=== PATIENT | female | born 1970 | race Caucasian/White ===

== ENCOUNTER → 2022-11-25 | Outpatient (CLI) | payer OTHER ==
[2022-11-25 15:18] LABS: Basophils # (A) 0.06 X 10*3/uL (0.00-0.10); Basophils % (A) 0.6 %; Eosinophils # (A) 0.42 X 10*3/uL (0.04-0.35); Eosinophils % (A) 3.9 %; HCT 37.7 % (37.2-46.3); HGB 12.4 g/dL (12.0-15.0); Immature Grans, Automated 0.4 %; Lymphocytes # (A) 3.39 X 10*3/uL (0.90-5.00); Lymphocytes % (A) 31.4 %; MCH 31.7 pg (27.0-32.0); MCHC 32.9 g/dL (32.0-37.0); MCV 96.4 fL (80.0-97.0); Monocytes # (A) 0.45 X 10*3/uL (0.20-1.00); Monocytes % (A) 4.2 %; NRBC Per 100 WBC 0 /100 WBCS (0.0-0.0); Neutrophils # (A) 6.45 X 10*3/uL (1.80-7.70); Neutrophils % (A) 59.5 %; Platelet Count 300 X 10*3/uL (140-440); RBC 3.91 X 10*6/uL (4.10-5.20); RDW 12.7 % (11.5-14.5); WBC 10.81 X 10*3/uL (4.50-10.00)
[2022-11-25 16:16] LABS: Hepatitis B Surface Antigen Nonreactive (Nonreactive); Hepatitis C IgG Antibody Nonreactive (Nonreactive)
[2022-11-25 16:20] LABS: % Iron Saturation 15.14 (12.00-45.00); African American GFR (CKD) 73.2 (60.0-200.0); Albumin 4.6 g/dL (3.8-4.9); Albumin/Globulin Ratio 1.8 (1.60-3.17); Anion Gap 14.2 mmol/L (10.00-18.00); BUN/Creat Ratio 17.35 Ratio (12.00-20.00); Blood Urea Nitrogen 17.7 mg/dL (9.0-27.0); Calcium 10.1 mg/dL (8.7-10.3); Carbon Dioxide 24.2 mmol/L (20.0-27.5); Globulin 2.5 g/dL (1.6-3.3); Non-African American GFR(CKD) 63.2 (60.0-200.0); Potassium 4.1 mmol/L (3.5-5.5); Total Bilirubin 0.5 mg/dL (0.30-1.20); Total Protein 7.1 g/dL (6.2-8.2)
[2022-11-25 16:57] LABS: Ceruloplasmin 32.1 mg/dL (20.0-60.0)
[2022-11-28 08:15] LABS: Protein, Total 6.9 g/dL (6.2-8.2)
== END | disposition home or self-care (01) ==
LOC: LABWHC1 10:45
PROVIDERS: ATTEND Nurse Practitioner Family
DX: R74.01 Elevation of levels of liver transaminase levels (principal)
CPT/HCPCS: 36415; 80053; 82103; 82105; 82390; 82728; 83516; 83540; 83550; 84165; 85025; 86038; 86803; 87340

== ENCOUNTER 2024-04-12 08:14 | Observation (INO) | payer OTHER ==
--- NOTE | 2024-04-12 08:22 | ED ---
General Adult HPI - General Chief complaint: Back Pain/Injury Stated complaint: Abdominal Pain Time Seen by Provider: 04/12/24 08:32 Source: patient, RN notes reviewed Mode of arrival: ambulatory Limitations: no limitations - History of Present Illness Initial comments: 53-year-old female with past medical history of hypertension and type 2 diabetes presents emergency department chief complaint of upper abdominal pain with radiation to her back over the past 2 days. Patient states that symptoms started approximately 2 days ago with having mid right sided thoracic back pain with radiation into her abdomen. States that she felt nauseous yesterday m orning after eating breakfast. States that pain is most severe in her abdomen at this time and is relatively constant and feels like a pressure sensation. She currently is denying chest pain, shortness of breath, difficulty breathing, nausea, vomiting. Denies urinary symptoms. Last bowel movement few days ago however she states that this is normal for her. Denies previous surgical abdominal history. - Related Data Home Medications Medication Instructions Recorded Confirmed Atorvastatin [Lipitor] 20 mg PO HS 04/12/24 04/12/24 Cholecalciferol [Vitamin D3 (125 125 mcg PO DAILY 04/12/24 04/12/24 Mcg = 5000 Iu)] Famotidine [Pepcid] 20 mg PO BID 04/12/24 04/12/24 Lisinopril-Hctz 20-25 mg 1 tab PO DAILY 04/12/24 04/12/24 [Zestoretic 20-25] Meloxicam [Mobic] 15 mg PO DAILY 04/12/24 04/12/24 Pregabalin [Lyrica] 75 mg PO HS 04/12/24 04/12/24 amLODIPine [Norvasc] 10 mg PO DAILY 04/12/24 04/12/24 glipiZIDE [Glucotrol] 10 mg PO AC-BID 04/12/24 04/12/24 metFORMIN HCL 500 mg PO BID 04/12/24 04/12/24 Allergies Allergy/AdvReac Type Severity Reaction Status Date / Time erythromycin base Allergy Rash/Hives/ Verified 04/12/24 13:42 cramps Review of Systems ROS Statement: Those systems with pertinent positive or pertinent negative responses have been documented in the HPI. ROS Other: All systems not noted in ROS Statement are negative. Past Medical History Past Medical History: Diabetes Mellitus, Hyperlipidemia, Hypertension, Osteoarthritis (OA) Additional Past Surgical History / Comment(s): d&C Past Psychological History: No Psychological Hx Reported Smoking Status: Current every day smoker General Exam Limitations: no limitations General appearance: alert, in no apparent distress ENT exam: Present: normal exam, mucous membranes moist Neck exam: Present: normal inspection. Absent: tenderness, meningismus, lymphadenopathy Respiratory exam: Present: normal lung sounds bilaterally. Absent: respiratory distress, wheezes, rales, rhonchi, stridor Cardiovascular Exam: Present: regular rate, normal rhythm, normal heart sounds. Absent: systolic murmur, diastolic murmur, rubs, gallop, clicks GI/Abdominal exam: Present: soft, tenderness (RUQ, + Herrera's sign), normal bowel sounds. Absent: distended, guarding, rebound, rigid Extremities exam: Present: normal inspection, full ROM, normal capillary refill. Absent: tenderness, pedal edema, joint swelling, calf tenderness Back exam: Present: normal inspection, tenderness (not exacerabted with palpation, right thoracic pain) Skin exam: Present: warm, dry, intact, normal color. Absent: rash Course Vital Signs 04/12/24 04/12/24 04/12/24 08:16 09:19 10:54 Temperature 98 F Pulse Rate 116 H 86 94 Respiratory 20 18 18 Rate Blood Pressure 142/83 114/76 120/73 O2 Sat by Pulse 98 98 96 Oximetry 04/12/24 12:09 Temperature Pulse Rate 90 Respiratory 18 Rate Blood Pressure 120/71 O2 Sat by Pulse 96 Oximetry Medical Decision Making - Medical Decision Making Was pt. sent in by a medical professional or institution (, PA, [employer], urgent care, hospital, or fci...) When possible be specific @ -No Did you speak to anyone other than the patient for history (EMS, parent, family, police, friend...)? What history was obtained from this source @ -No Did you review nursing and triage notes (agree or disagree)? Why? @ -I reviewed and agree with nursing and triage notes Were old charts reviewed (outside hosp., previous admission, EMS record, old EKG, old radiological studies, urgent care reports/EKG's, fci records)? Report findings @ -No old charts were reviewed Differential Diagnosis (chest pain, altered mental status, abdominal pain women, abdominal pain men, vaginal bleeding, weakness, fever, dyspnea, syncope, headache, dizziness, GI bleed, back pain, seizure, CVA, palpatations, mental health, musculoskeletal)? @ -Differential Abdominal Pain Women: Appendicitis, Cholecystitis, diverticulosis, ischemic bowel, pancreatitis, hepatitis, UTI, gastroenteritis, AAA, incarcerated hernia, bowel obstruction, constipation, inflammatory bowel, hepatitis, peptic ulcer disease, splenic infarction, perforated viscus, vulvitis, ovarian torsion, PID, kidney stone, placenta abruption, this is not meant to be an all-inclusive list EKG interpreted by me (3pts min.). @ -Completed at 839 sinus rhythm with a ventricular rate of 97, parable 149, QRS 109, QTc 404. No acute signs of ischemia. X-rays interpreted by me (1pt min.). @ -None done CT interpreted by me (1pt min.). @ -CTA of the chest reveals no evidence for PE, thoracic aortic aneurysm or dissection with no acute cardiopulmonary disease. CT of the abdomen and pelvis with IV contrast reveals gallbladder thickening with some surrounding fat stranding raises concern for acute cholecystitis, recommend HIDA scan. noncirrhotic appearance of the liver without focal lesion U/S interpreted by me (1pt. min.). @ -Ultrasound of the gallbladder reveals a heterogeneous nodular appearance of liver, correlate for hepatocellular disease such as cirrhosis/hepatitis with serum markers pulmonary edema around the gallbladder but no evidence for acute process What testing was considered but not performed or refused? (CT, X-rays, U/S, labs)? Why? @ -None What meds were considered but not given or refused? Why? @ -None Did you discuss the management of the patient with other professionals (professionals i.e. , PA, [employer], lab, RT, psych nurse, social services specialist, safety patrol officer, teacher, chief clinical officer, case picker)? Give summary @ -Spoke with general surgeon on-call Was smoking cessation discussed for >3mins.? @ -No Was critical care preformed (if so, how long)? @ -No Were there social determinants of health that impacted care today? How? (Homelessness, low income, unemployed, alcoholism, drug addiction, transportation, low edu. Level, literacy, decrease access to med. care, group home, rehab)? @ -No Was there de-escalation of care discussed even if they declined (Discuss DNR or withdrawal of care, Hospice)? DNR status @ -No What co-morbidities impacted this encounter? (DM, HTN, Smoking, COPD, CAD, Cancer, CVA, ARF, Chemo, Hep., AIDS, mental health diagnosis, sleep apnea, morbid obesity)? @ -None Was patient admitted / discharged? Hospital course, mention meds given and route, prescriptions, significant lab abnormalities, going to OR and other pertinent info. @ -admitted. 53 year old female presented with RUQ abdominal pain with radiation into her right thoracic back. Patient's vitals are stable, examination reveals a positive Herrera sign with palpation of the right upper quadrant reveals severe tenderness to the abdomen. Patient's thoracic back pain is not reproducible. She is offered analgesics and antiemetics however she has declined this time. Patient was evaluated via laboratory studies and ultrasound imaging. abnormal laboratory studies include mild leukocytosis of 11.8, neutrophils 8.1, BUN 20, creatinine 1.17, lipase 352, alkaline phosphatase 225. Was unremarkable for heterogeneous nodule appearance of the liver. I spoke with my attending, Dr. Roldan, regard to the patient's workup thus far and he presented evaluated the patient. Is recommend that patient undergo a CT a of the chest for pulmonary embolism study and CT abdomen pelvis with IV contrast for further evaluation. ET of the chest negative for PE. CT of the abdomen and pelvis with IV contrast reveals gallbladder thickening with surrounding fat stranding for possible acute cholecystitis. I spoke with general surgeon regarding the patient's case and is recommended that she be admitted and started on IV antibiotics and laboratory studies will be reevaluated in the morning for potential surgical removal of the gallbladder. Patient is informed of findings and is in agreement with staying. Patient will be started on IV Flagyl and Levaquin. Discussed with Dr. Roldan Undiagnosed new problem with uncertain prognosis? @ -No Drug Therapy requiring intensive monitoring for toxicity (Heparin, Nitro, Insulin, Cardizem)? @ -No Were any procedures done? @ -No Diagnosis/symptom? @ -cholecystitis Acute, or Chronic, or Acute on Chronic? @ -acute Uncomplicated (without systemic symptoms) or Complicated (systemic symptoms)? @ -complicated Side effects of treatment? @ -No Exacerbation, Progression, or Severe Exacerbation? @ -No Poses a threat to life or bodily function? How? (Chest pain, [place], [place], pneumonia, PE, COPD, DKA, ARF, appy, cholecystitis, CVA, Diverticulitis, Homicidal, Suicidal, threat to staff... and all critical care pts) @ -No - Lab Data Result diagrams: 04/12/24 08:58 04/12/24 08:58 Lab Results 04/12/24 04/12/24 04/12/24 Range/Units 08:58 08:58 08:58 WBC 11.8 H (3.8-10.6) k/uL RBC 3.74 L (3.80-5.40) m/uL Hgb 12.0 (11.4-16.0) gm/dL Hct 35.5 (34.0-46.0) % MCV 94.9 (80.0-100.0) fL MCH 32.1 (25.0-35.0) pg MCHC 33.8 (31.0-37.0) g/dL RDW 14.5 (11.5-15.5) % Plt Count 302 (150-450) k/uL MPV 8.6 Neutrophils % 68 % Lymphocytes % 22 % Monocytes % 4 % Eosinophils % 4 % Basophils % 1 % Neutrophils # 8.1 H (1.3-7.7) k/uL Lymphocytes # 2.6 (1.0-4.8) k/uL Monocytes # 0.5 (0-1.0) k/uL Eosinophils # 0.5 (0-0.7) k/uL Basophils # 0.1 (0-0.2) k/uL Sodium 140 (137-145) mmol/L Potassium 4.0 (3.5-5.1) mmol/L Chloride 105 (98-107) mmol/L Carbon Dioxide 25 (22-30) mmol/L Anion Gap 10 mmol/L BUN 24 H (7-17) mg/dL Creatinine 1.17 H (0.52-1.04) mg/dL Est GFR (CKD-EPI)AfAm 62 (>60 ml/min/1.73 sqM) Est GFR (CKD-EPI)NonAf 53 (>60 ml/min/1.73 sqM) Glucose 160 H (74-99) mg/dL Plasma Lactic Acid Yonis 1.9 (0.7-2.0) mmol/L Calcium 10.1 (8.4-10.2) mg/dL Total Bilirubin 1.0 (0.2-1.3) mg/dL AST 24 (14-36) U/L ALT 30 (4-34) U/L Alkaline Phosphatase 225 H (38-126) U/L Total Protein 7.2 (6.3-8.2) g/dL Albumin 4.2 (3.5-5.0) g/dL Amylase 71 (30-110) U/L Lipase 352 H (23-300) U/L Disposition Clinical Impression: Cholecystitis, Abdominal pain Disposition: ADMITTED IP TO THIS [facility] Condition: Stable Referrals: None,Stated [REFERRING] - 1-2 days Decision to Admit Reason: Admit from EC Decision Date: 04/12/24 Decision Time: 13:40
[2024-04-12 09:12] LABS: Basophils # (A) 0.1 k/uL (0-0.2); Basophils % (A) 1 %; Eosinophils # (A) 0.5 k/uL (0-0.7); Eosinophils % (A) 4 %; HCT 35.5 % (34.0-46.0); Lymphocytes # (A) 2.6 k/uL (1.0-4.8); Lymphocytes % (A) 22 %; MCH 32.1 pg (25.0-35.0); MCHC 33.8 g/dL (31.0-37.0); MCV 94.9 fL (80.0-100.0); Mean Platelet Volume 8.6; Monocytes # (A) 0.5 k/uL (0-1.0); Monocytes % (A) 4 %; Neutrophils # (A) 8.1 k/uL (1.3-7.7); Neutrophils % (A) 68 %; Platelet Count 302 k/uL (150-450); RBC 3.74 m/uL (3.80-5.40); RDW 14.5 % (11.5-15.5); WBC 11.8 k/uL (3.8-10.6)
[2024-04-12 09:29] LABS: ALT 30 U/L (4-34); AST 24 U/L (14-36); African American GFR (CKD) 62 (>60 ml/min/1.73 sqM); Albumin 4.2 g/dL (3.5-5.0); Alkaline Phosphatase 225 U/L (38-126); Amylase 71 U/L (30-110); Anion Gap 10 mmol/L; Blood Urea Nitrogen 24 mg/dL (7-17); Calcium 10.1 mg/dL (8.4-10.2); Carbon Dioxide 25 mmol/L (22-30); Chloride 105 mmol/L (98-107); Glucose 160 mg/dL (74-99); Lipase 352 U/L (23-300); Non-African American GFR(CKD) 53 (>60 ml/min/1.73 sqM); Sodium 140 mmol/L (137-145); Total Protein 7.2 g/dL (6.3-8.2)
--- NOTE | 2024-04-12 10:37 | US ---
EXAMINATION TYPE: US gallbladder DATE OF EXAM: 04/12/2024 COMPARISON: NONE CLINICAL INDICATION: Female, 53 years old with history of RUQ ab pain, radiation into R back; Pain TECHNIQUE: Grayscale and color Doppler imaging of the right upper quadrant was performed. FINDINGS: EXAM MEASUREMENTS: Liver Length: 18.8 cm Gallbladder Wall: 0.3 cm CBD: 0.7 cm Right Kidney: 9.7 x 4.4 x 4.2 cm Pancreas: Tail obscured by overlying bowel gas, heterogenous Liver: Enlarged in size. Heterogenous and nodular in appearance. Gallbladder: Upper limits of normal in size. No stones seen. Possible edema seen around GB fossa wi th color Doppler flow suggestive of vascular structure. Evidence for sonographic Herrera's sign: neg CBD: Not well visualized Right Kidney: No hydronephrosis or masses seen IMPRESSION: Heterogenous nodular appearance of liver correlate for hepatocellular disease such as cirrhosis/hepat itis with serum markers. Pulmonary edema around the gallbladder fossa has color flow and possibly rep resenting a vessel. No additional evidence for acute process. [facility], , 04/12/2024 10:35 AM
--- NOTE | 2024-04-12 11:28 | CT ---
EXAMINATION TYPE: CT chest angio for PE DATE OF EXAM: 04/12/2024 COMPARISON: None HISTORY: UPPER BACK PAIN CT DLP: 492 mGycm Automated exposure control for dose reduction was used. CONTRAST: CT Chest for pulmonary embolism performed with with IV Contrast, patient injected with 80 mL of Isovu e 370. FINDINGS: LUNGS: The lungs are clear and there is no consolidative airspace opacity or abnormal interstitial density. There is a calcified right hilar lymph node and a small granuloma in the left upper lobe. There is no suspicious lung mass or nodule. There is no pleural effusion or pneumothorax. The great vessels just normal there is no thoracic aortic aneurysm. There are no filling defects with in the pulmonary arterial circulation to suggest pulmonary embolus. There is no mediastinal, hilar or axillary adenopathy. Visualized osseous structures are intact and there is no focal osseous lesion. IMPRESSION: 1. No evidence of pulmonary embolism. 2. No thoracic aortic aneurysm or dissection. 3. No acute cardiopulmonary disease. [facility], Workstation: [id number] 04/12/2024 11:26 AM
--- NOTE | 2024-04-12 13:16 | CT ---
EXAMINATION TYPE: CT abdomen pelvis w con CT DLP: 916.6 mGycm, Automated exposure control for dose reduction was used. DATE OF EXAM: 04/12/2024 11:19 AM COMPARISON: Gallbladder ultrasound 04/12/2024 CLINICAL INDICATION:Female, 53 years old with history of RUQ ab pain; ruq ABDOMINAL PAIN TECHNIQUE: Standard CT of the abdomen and pelvis following the administration of 100 cc of Isovue 3 00 IV contrast material. Coronal and sagittal reformats were performed. FINDINGS: LOWER CHEST: Please see dedicated CTA chest for findings ABDOMEN LIVER: No focal lesion. No overt cirrhotic appearance of the liver. GALLBLADDER AND BILE DUCTS: There is some mild wall thickening suggested of the gallbladder with surr ounding fat stranding (series 501 image 41). No biliary duct dilatation. PANCREAS: Unremarkable. SPLEEN: Scattered calcified granulomas. ADRENAL GLANDS: Right adrenal gland is unremarkable. Mild thickening of the left adrenal gland possib ly representing hyperplasia. KIDNEYS AND URETERS: No evidence of hydronephrosis or renal calculus. The kidneys enhance symmetrical ly with some lobulation associated. Contrast demonstrated on the delayed phase within both stalin ecting systems. PELVIS BLADDER: Unremarkable REPRODUCTIVE: Unremarkable. ABDOMEN & PELVIS STOMACH AND BOWEL: Small hiatal hernia. Periampullary duodenal diverticulum. No focal bowel wall thic kening or surrounding inflammatory changes. The appendix is within normal limits. No evidence of alessandro l obstruction. PERITONEUM: No evidence of pneumoperitoneum or free fluid. VASCULATURE: Mild atherosclerotic calcifications are present throughout the abdominal aorta and its b ranches. No evidence of aortic aneurysm. MUSCULOSKELETAL: No acute osseous abnormalities LYMPH NODES: No evidence for lymphadenopathy. SOFT TISSUE/ABDOMINAL WALL: Tiny fat filled umbilical hernia. IMPRESSION: 1. Minimal gallbladder wall thickening with some surrounding fat stranding identified which raises c oncern for acute cholecystitis. Recommend further evaluation with nuclear medicine HIDA scan. 2. Noncirrhotic appearance of the liver without focal lesion. [facility], , 04/12/2024 1:14 PM
[2024-04-12] MEDS ORDERED: NALOXONE 0.4 MG/ML 1 ML VIAL IV PRN (13:45)
[2024-04-12] MEDS ORDERED: KETOROLAC 15 MG/ML 1 ML VIAL IVP PRN (13:45)
[2024-04-12] MEDS ORDERED: IBUPROFEN 400 MG TAB PO PRN (13:45)
[2024-04-12] MEDS: metroNIDAZOLE-NS PMX 500 MG in SALINE 1 100ML.BAG IVPB SCH ×2 (14:19→16:13)
[2024-04-12] MEDS: LEVOFLOXACIN 500MG-D5W PMX 500 MG in DEXTROSE/WATER 1 100ML.BAG IVPB SCH ×2 (14:19→14:22)
[2024-04-12] MEDS: SODIUM CHLORIDE 0.9% 1,000 ML IV SCH (14:22)
--- NOTE | 2024-04-12 14:41 | P.GSHP ---
History of Present Illness H&P Date: 04/12/24 CHIEF COMPLAINT: Abdominal pain HISTORY OF PRESENT ILLNESS: This is a 53-year-old female who presented to the hospital with complaints of right upper quadrant abdominal pain that started 4 days ago. Given patient reports pain radiates around from her back and around the upper abdomen. Patient reports that symptoms did start Monday evening after she had eaten hamburger helper for dinner. She has been having nausea. She noticed nausea after breakfast this morning. She denies any fever chills or sweats. She denies any prior abdominal surgery. She is a diabetic. Abdominal ultrasound reported heterogenous nodular appearance of liver correlate for hepatocellular disease such as cirrhosis, hepatitis. Possible edema around the gallbladder fossa. No gallstones. No acute process. And CT scan abdomen and pelvis had reported minimal gallbladder wall thickening and some surrounding fat stranding identified which raises concerns for acute cholecystitis. Patient denies any history of alcohol use. She does report having had some mildly elevated liver enzymes on prior blood work with her PCP. Denies daily alcohol use. Patient was mildly tachycardic on admission. Patient denies any chest pain or shortness of breath. PAST MEDICAL HISTORY: Diabetes, hyperlipidemia, hypertension, osteoarthritis PAST SURGICAL HISTORY: D&C MEDICATIONS: See below ALLERGIES: See below SOCIAL HISTORY: No illicit drug use. Nicotine dependence. Alcohol use rare REVIEW OF SYSTEMS: CONSTITUTIONAL: Denies fever or chills. HEENT: Denies blurred vision, vision changes, or eye pain. Denies hemoptysis CARDIOVASCULAR: Denies chest pain or pressure. RESPIRATORY: No shortness of breath. GASTROINTESTINAL: See HPI for pertinent findings HEMATOLOGIC: Denies bleeding disorders. GENITOURINARY: Denies any blood in urine or increased urinary frequency. SKIN: Denies pruitis. Denies rash. PHYSICAL EXAM: VITAL SIGNS: Reviewed GENERAL: Well-developed in no acute distress. HEENT: No sclera icterus. Extraocular movements grossly intact. Moist buccal mucosa. Head is atraumatic, normocephalic. No nasal drainage. ABDOMEN: Soft. Nondistended. Tenderness palpation of the right upper quadrant NEUROLOGIC: Alert and oriented. Cranial nerves II through XII grossly intact. LABORATORY DATA: WBC 11.8 Hgb 12 platelets 302 Sodium 140 potassium 4.0 creatinine 1.17 Glucose 160 Lactic acid 1.9 Total bilirubin 1.0 AST 24 ALT 30 alk phos 225 Lipase 352 amylase 71 IMAGING: Gallbladder ultrasound reports heterogeneous nodular appearance of liver correlate for hepatocellular disease such as cirrhosis/hepatitis with serum markers. Possible edema around gallbladder fossa. No additional evidence for acute process. Chest CTA negative for PE. No thoracic aortic aneurysm or dissection CT scan abdomen pelvis reports minimal gallbladder wall thickening with some surrounding fat stranding identified which raises concern for acute cholecystitis. Noncirrhotic appearance of the liver without focal lesion ASSESSMENT: 1. Right upper quadrant abdominal pain. Possible cholecystitis. Gallbladder ultrasound reporting possible edema around the gallbladder fossa. CT scan reporting minimal gallbladder wall thickening with some surrounding fat stranding concerns for acute cholecystitis 2. Elevated alk phos 3. Minimally elevated lipase 4. Dehydration. Mildly elevated creatinine 5. Diabetes mellitus PLAN: -Further recommendations forthcoming per surgeon -Repeat LFTs and lipase in a.m. -Recommend low-fat, consistent carbohydrate diet -Continue pain management -Continue antibiotics -Continue IV fluids -Consult medicine service for medical management Physician Mold Presser note has been reviewed by physician. Signing provider agrees with the documented findings, assessment, and plan of care. Past Medical History Past Medical History: Diabetes Mellitus, Hyperlipidemia, Hypertension, Osteoarthritis (OA) Additional Past Surgical History / Comment(s): d&C Past Psychological History: No Psychological Hx Reported Smoking Status: Current every day smoker Medications and Allergies Home Medications Medication Instructions Recorded Confirmed Type Atorvastatin [Lipitor] 20 mg PO HS 04/12/24 04/12/24 History Cholecalciferol [Vitamin D3 (125 125 mcg PO DAILY 04/12/24 04/12/24 History Mcg = 5000 Iu)] Famotidine [Pepcid] 20 mg PO BID 04/12/24 04/12/24 History Lisinopril-Hctz 20-25 mg 1 tab PO DAILY 04/12/24 04/12/24 History [Zestoretic 20-25] Meloxicam [Mobic] 15 mg PO DAILY 04/12/24 04/12/24 History Pregabalin [Lyrica] 75 mg PO HS 04/12/24 04/12/24 History amLODIPine [Norvasc] 10 mg PO DAILY 04/12/24 04/12/24 History glipiZIDE [Glucotrol] 10 mg PO AC-BID 04/12/24 04/12/24 History metFORMIN HCL 500 mg PO BID 04/12/24 04/12/24 History Allergies Allergy/AdvReac Type Severity Reaction Status Date / Time erythromycin base Allergy Rash/Hives/ Verified 04/12/24 13:42 cramps Surgical - Exam Vital Signs Temp Pulse Resp BP Pulse Ox 98 F 116 H 20 142/83 98 04/12/24 08:16 04/12/24 08:16 04/12/24 08:16 04/12/24 08:16 04/12/24 08:16 Results - Labs 04/12/24 08:58 04/12/24 08:58 Abnormal Lab Results - Last 24 Hours (Table) 04/12/24 04/12/24 Range/Units 08:58 08:58 WBC 11.8 H (3.8-10.6) k/uL RBC 3.74 L (3.80-5.40) m/uL Neutrophils # 8.1 H (1.3-7.7) k/uL BUN 24 H (7-17) mg/dL Creatinine 1.17 H (0.52-1.04) mg/dL Glucose 160 H (74-99) mg/dL Alkaline Phosphatase 225 H (38-126) U/L Lipase 352 H (23-300) U/L Diabetes panel 04/12/24 Range/Units 08:58 Sodium 140 (137-145) mmol/L Potassium 4.0 (3.5-5.1) mmol/L Chloride 105 (98-107) mmol/L Carbon Dioxide 25 (22-30) mmol/L BUN 24 H (7-17) mg/dL Creatinine 1.17 H (0.52-1.04) mg/dL Glucose 160 H (74-99) mg/dL Calcium 10.1 (8.4-10.2) mg/dL AST 24 (14-36) U/L ALT 30 (4-34) U/L Alkaline Phosphatase 225 H (38-126) U/L Total Protein 7.2 (6.3-8.2) g/dL Albumin 4.2 (3.5-5.0) g/dL Calcium panel 04/12/24 Range/Units 08:58 Calcium 10.1 (8.4-10.2) mg/dL Albumin 4.2 (3.5-5.0) g/dL Pituitary panel 04/12/24 Range/Units 08:58 Sodium 140 (137-145) mmol/L Potassium 4.0 (3.5-5.1) mmol/L Chloride 105 (98-107) mmol/L Carbon Dioxide 25 (22-30) mmol/L BUN 24 H (7-17) mg/dL Creatinine 1.17 H (0.52-1.04) mg/dL Glucose 160 H (74-99) mg/dL Calcium 10.1 (8.4-10.2) mg/dL Adrenal panel 04/12/24 Range/Units 08:58 Sodium 140 (137-145) mmol/L Potassium 4.0 (3.5-5.1) mmol/L Chloride 105 (98-107) mmol/L Carbon Dioxide 25 (22-30) mmol/L BUN 24 H (7-17) mg/dL Creatinine 1.17 H (0.52-1.04) mg/dL Glucose 160 H (74-99) mg/dL Calcium 10.1 (8.4-10.2) mg/dL Total Bilirubin 1.0 (0.2-1.3) mg/dL AST 24 (14-36) U/L ALT 30 (4-34) U/L Alkaline Phosphatase 225 H (38-126) U/L Total Protein 7.2 (6.3-8.2) g/dL Albumin 4.2 (3.5-5.0) g/dL
[2024-04-12 16:12] LABS: Glucose,Whole Blood 89 mg/dL (70-110)
[2024-04-12] MEDS ORDERED: DEXTROSE 50% SYRINGE 50 ML IVP PRN ×2 (18:21)
--- NOTE | 2024-04-12 18:23 | P.CONS ---
History of Present Illness - Reason for Consult Consult date: 04/12/24 Medical management Requesting physician: Nirav Conway - Chief Complaint Abdominal pain - History of Present Illness This is a pleasant 53-year-old patient, follows with Dr. Amy Hamilton. Chronic stable medical condition include diabetes, hypertension, hyperlipidemia, osteoarthritis. Patient smokes about a pack a day. 2 days ago patient started with pain in the right flank area then it came to the front. Progressively got worse. Denied any fever chills nausea vomiting. Patient pain brother became significant. Appetite was fair. No change in bowel pattern. Review of systems: GEN.: Tired EYES: None HEENT: None NECK: None RESPIRATORY: None CARDIOVASCULAR: None GASTROINTESTINAL: As above e GENITOURINARY: None MUSCULOSKELETAL: Some joint pains] LYMPHATICS: None HEMATOLOGICAL: None PSYCHIATRY: None NEUROLOGICAL: None Social history: Lives alone. Works for [employer]. Smokes about a pack a day. Physical examination: VITAL SIGNS: 98, 116, 20, 142/83, 98% room air GENERAL: BMI 35.3, sitting in bed awake not in distress. EYES: Pupils equal. Conjunctiva natty l. HEENT: External appearance of nose and ears normal, oral cavity grossly normal. NECK: JVD not raised; masses not palpable. HEART: First and second heart sounds are normal; no edema. LUNGS: Respiratory rate normal; decreased breath sound. ABDOMEN: Soft, significant right upper quadrant tenderness, mild guarding no rigidity, liver spleen not palpable, no masses palpable. PSYCH: Alert and oriented x3; mood and affect anxious l. MUSCULOSKELETAL:No Clubbing/cyanosis;muscles-grossly intact NEUROLOGICAL: Cranial nerves grossly intact; no facial asymmetry, power and sensation grossly intact. LYMPHATICS: No lymph nodes palpable in the axilla and neck INVESTIGATIONS, reviewed in the clinical context: White count 9.8 hemoglobin 12 platelets 302 sodium 140 potassium 4 BUN 24 creatinine 1.17 glucose 160 lipase 352 EKG tracing personally reviewed by me-normal sinus rhythm. Nonspecific ST-T wave changes in inferior lateral leads Ultrasound gallbladder: Liver enlarged in size heterogeneous and nodular in appearance. Gallbladder upper limits of normal in size. No stone seen. Possible edema around gallbladder fossa. Chest CTA: Unremarkable CT abdomen pelvis with contrast: Liver no focal lesion. No obvious cirrhotic appearance. Gallbladder: Some mild wall thickening with surrounding fat stranding. No biliary duct dilatation. Pancreas unremarkable Assessment plan: -Patient presents with 2 days history increasing right upper abdominal pain. No fever or chills. Has elevated white count. CT ultrasound showing some thickening of the gallbladder wall. No CBD dilatation. Some fat stranding of the surrounding. Acute acalculous cholecystitis IV Levaquin, IV Flagyl.. N.p.o. after midnight -Diabetes mellitus type 2, oral hypoglycemic Hold glyburide. Accu-Cheks with sliding scale insulin -Obesity BMI 35.3 Weight loss measures -Essential hypertension Amlodipine 10 mg Zestoretic 28/06.5 -Primary osteoarthritis Mobic as needed -GERD Pepcid -Hyperlipidemia Lipitor 20 mg nightly -Chronic nicotine dependence cigarette smoker Nicotine patch -Full code Care was discussed with patient. Questions answered. N.p.o. after midnight except medications. Thank you Dr. Conway Past Medical History Past Medical History: Diabetes Mellitus, Hyperlipidemia, Hypertension, Osteoarthritis (OA) Additional Past Surgical History / Comment(s): d&C Past Psychological History: No Psychological Hx Reported Smoking Status: Current every day smoker Medications and Allergies Home Medications Medication Instructions Recorded Confirmed Type Atorvastatin [Lipitor] 20 mg PO HS 04/12/24 04/12/24 History Cholecalciferol [Vitamin D3 (125 125 mcg PO DAILY 04/12/24 04/12/24 History Mcg = 5000 Iu)] Famotidine [Pepcid] 20 mg PO BID 04/12/24 04/12/24 History Lisinopril-Hctz 20-25 mg 1 tab PO DAILY 04/12/24 04/12/24 History [Zestoretic 20-25] Meloxicam [Mobic] 15 mg PO DAILY 04/12/24 04/12/24 History Pregabalin [Lyrica] 75 mg PO HS 04/12/24 04/12/24 History amLODIPine [Norvasc] 10 mg PO DAILY 04/12/24 04/12/24 History glipiZIDE [Glucotrol] 10 mg PO AC-BID 04/12/24 04/12/24 History metFORMIN HCL 500 mg PO BID 04/12/24 04/12/24 History Allergies Allergy/AdvReac Type Severity Reaction Status Date / Time erythromycin base Allergy Rash/Hives/ Verified 04/12/24 13:42 cramps Physical Exam Vitals: Vital Signs Temp Pulse Resp BP Pulse Ox 04/12/24 16:06 98 F 98 18 113/61 97 04/12/24 12:09 90 18 120/71 96 04/12/24 10:54 94 18 120/73 96 04/12/24 09:19 86 18 114/76 98 04/12/24 08:16 98 F 116 H 20 142/83 98 Intake and Output 04/12/24 04/12/24 04/12/24 06:59 14:59 22:59 Other: Weight 96.162 kg Results CBC & Chem 7: 04/12/24 08:58 04/12/24 08:58 Labs: Abnormal Lab Results - Last 24 Hours (Table) 04/12/24 04/12/24 Range/Units 08:58 08:58 WBC 11.8 H (3.8-10.6) k/uL RBC 3.74 L (3.80-5.40) m/uL Neutrophils # 8.1 H (1.3-7.7) k/uL BUN 24 H (7-17) mg/dL Creatinine 1.17 H (0.52-1.04) mg/dL Glucose 160 H (74-99) mg/dL Alkaline Phosphatase 225 H (38-126) U/L Lipase 352 H (23-300) U/L
[2024-04-12] MEDS: INSULIN ASPART (NovoLOG) 100 UNIT/ML VIAL SQ SCH ×2 (18:28→21:13)
[2024-04-12 20:08] LABS: Glucose,Whole Blood 220 mg/dL (70-110)
[2024-04-12] MEDS: ENOXAPARIN 40 MG/0.4 ML SYRINGE SQ SCH (20:31)
[2024-04-12] MEDS: ATORVASTATIN 20 MG TAB PO SCH (20:31)
[2024-04-12] MEDS: NICOTINE 21MG/24HR PATCH TRANSDERM SCH (20:31)
[2024-04-12] MEDS: FAMOTIDINE 20 MG TAB PO SCH (20:32)
[2024-04-12] MEDS: PREGABALIN 75 MG CAP PO SCH (20:32)
[2024-04-13 04:02] LABS: Basophils % (A) 0 %; Eosinophils # (A) 0.3 k/uL (0-0.7); Eosinophils % (A) 3 %; HCT 31.4 % (34.0-46.0); HGB 10.4 gm/dL (11.4-16.0); Lymphocytes # (A) 2.4 k/uL (1.0-4.8); Lymphocytes % (A) 26 %; MCH 31.7 pg (25.0-35.0); MCV 96.1 fL (80.0-100.0); Mean Platelet Volume 8.5; Monocytes # (A) 0.5 k/uL (0-1.0); Monocytes % (A) 6 %; Neutrophils # (A) 5.9 k/uL (1.3-7.7); Neutrophils % (A) 64 %; Platelet Count 300 k/uL (150-450); RBC 3.26 m/uL (3.80-5.40); RDW 14.6 % (11.5-15.5); WBC 9.2 k/uL (3.8-10.6)
[2024-04-13 04:37] LABS: ALT 25 U/L (4-34); AST 20 U/L (14-36); African American GFR (CKD) 55 (>60 ml/min/1.73 sqM); Albumin 3.5 g/dL (3.5-5.0); Albumin/Globulin Ratio 1.4; Alkaline Phosphatase 200 U/L (38-126); Amylase 58 U/L (30-110); Anion Gap 6 mmol/L; Blood Urea Nitrogen 21 mg/dL (7-17); Calcium 9.3 mg/dL (8.4-10.2); Carbon Dioxide 26 mmol/L (22-30); Chloride 107 mmol/L (98-107); Globulin 2.5 g/dL; Glucose 110 mg/dL (74-99); Lipase 303 U/L (23-300); Non-African American GFR(CKD) 48 (>60 ml/min/1.73 sqM); Potassium 4.1 mmol/L (3.5-5.1); Sodium 139 mmol/L (137-145)
[2024-04-13 06:05] LABS: Glucose,Whole Blood 152 mg/dL (70-110)
[2024-04-13] MEDS: metFORMIN 500 MG TAB PO SCH (06:26)
[2024-04-13] MEDS ORDERED: MELOXICAM 7.5 MG TAB PO SCH (09:00)
[2024-04-13] MEDS: CHOLECALCIFEROL 125 MCG (5000 IU) TABLET PO SCH (09:32)
[2024-04-13] MEDS: LISINOPRIL-HCTZ 20-25 MG 1 EACH TAB PO SCH (09:32)
[2024-04-13] MEDS: amLODIPine 10 MG TAB PO SCH (09:32)
[2024-04-13] MEDS ORDERED: SUCCINYLCHOLINE CHLORIDE 200 MG/10 ML VIAL IV ONE (10:40)
[2024-04-13] MEDS ORDERED: fentaNYL (PF) 50 MCG/ML 2 ML AMP ONE (10:40)
[2024-04-13] MEDS ORDERED: MIDAZOLAM 2 MG/2 ML VIAL ONE (10:40)
[2024-04-13] MEDS ORDERED: GLYCOPYRROLATE 0.2 MG/ML 2 ML VIAL ONE (10:40)
[2024-04-13] MEDS ORDERED: ePHEDrine 50 MG/ML 1 ML VIAL ONE (10:40)
[2024-04-13] MEDS ORDERED: PROPOFOL 10 MG/ML 20 ML VIAL IV ONE (10:40)
[2024-04-13] MEDS ORDERED: KETOROLAC 15 MG/ML 1 ML VIAL ONE (10:40)
[2024-04-13] MEDS ORDERED: ROCURONIUM 10 MG/ML (5 ML VIAL) IV ONE (10:40)
[2024-04-13] MEDS ORDERED: NEOSTIGMINE 1 MG/ML 10 ML VIAL ONE (10:40)
[2024-04-13] MEDS ORDERED: LIDOCAINE 1% INJ 10MG/ML (20 ML MDV) ONE (10:40)
[2024-04-13] MEDS ORDERED: LIDOCAINE 4% LTA KIT (4 ML) TOPICAL ONE (10:40)
[2024-04-13] MEDS ORDERED: ACETAMINOPHEN TAB 325 MG TAB PO PRN (10:41)
[2024-04-13] MEDS: IV FLUID CONTINUATION 1,000 ML IV ONE ×2 (10:45→13:00)
[2024-04-13] MEDS: BUPIVACAINE (PF) 0.25% 30 ML VIAL SQ ONE (11:12)
--- NOTE | 2024-04-13 12:03 | P.OP ---
Date of Procedure: 04/13/24 Procedure(s) Performed: PREOPERATIVE DIAGNOSIS: Acute acalculous cholecystitis POSTOPERATIVE DIAGNOSIS: Same PROCEDURE: Laparoscopic cholecystectomy SURGEON: Zoraida EBL: 10 cc ANESTHESIA: Gen. COMPLICATIONS: None OPERATIVE PROCEDURE: The patient was brought and placed on the operating room table in the supine position. The patient was placed under general anesthesia at that time. The abdomen was prepped and draped in the usual sterile fashion. A small vertical infraumbilical incision was made. The fascia was grasped with the Fay forceps. The fascia was retracted anteriorly. The Veress needle was advanced into the peritoneal cavity. The saline drop test was normal. Insufflation took place up to 15 mmHg. A 5 mm optical trocar was advanced and the peritoneal cavity. 2 additional 5 mm trochars were placed in the right upper quadrant under direct visualization. A 12 mm trocar was advanced into the epigastric incision site. There was some fatty tissue adherent to the gallbladder that was lysed using both blunt dissection and cautery. The patient's gallbladder wall was significantly thickened. It was somewhat tense consistent with acute cholecystitis. The gallbladder was retracted superiorly and laterally. The peritoneum overlying the infundibulum was bluntly dissected. The patient's cystic duct was visualized. The junction between the cystic duct common and hepatic duct was identified. The critical view of safety was achieved after blunt dissection. The cystic duct was edematous as well. I used a 2-0 Ethibond stitch to ligate the cystic duct on the patient's side. An additional clip was placed both on the patient's side and the specimen side. The cystic duct was then divided after placement of 3 12 mm clips on the patient's side and one on the specimen side. The cystic artery was identified and clipped as well. A small vessel was seen along the gallbladder fossa and clipped as well. The gallbladder was then removed from the liver bed using electrocautery. The gallbladder was then removed from the epigastric trocar site with an Endo Catch bag. The gallbladder fossa was irrigated with saline. There was no evidence of any bleeding or biliary drainage seen. Given the degree of inflammatory changes I placed a drain in the gallbladder fossa exiting from the lateral 5 mm trocar site. This was sutured to the skin using a 3-0 silk stitch. The fascia at the 12 millimeter site was closed using a Lizandro- John 0 Vicryl stitch. The trochars were then removed. The skin at all 3 sites was closed using a 4-0 Monocryl stitch. Skin glue was utilized on the incision sites. At the end of this procedure the sponge and needle counts were correct. DISPOSITION: Stable to the recovery room
[2024-04-13 12:19] LABS: Glucose,Whole Blood 186 mg/dL (70-110)
[2024-04-13] MEDS: HYDROmorphone 0.5 MG/0.5 ML SYRINGE IVP PRN (12:27)
[2024-04-13] MEDS: ONDANSETRON 4 MG/2 ML VIAL IVP STA (12:35)
[2024-04-13] MEDS ORDERED: HYDROmorphone 0.5 MG/0.5 ML SYRINGE IVP PRN (12:36)
[2024-04-13] MEDS: PANTOPRAZOLE 40 MG/10 ML VIAL IV SCH (13:33)
[2024-04-13] MEDS: KETOROLAC 15 MG/ML 1 ML VIAL IVP SCH (13:40)
[2024-04-13] MEDS: HYDROmorphone 1 MG/ML 1 ML SYRINGE IVP PRN (14:55)
--- NOTE | 2024-04-13 17:08 | P.PN ---
Progress Note - Text Progress Note Date: 04/13/24 - Chief Complaint Abdominal pain - History of Present Illness This is a pleasant 53-year-old patient, follows with Dr. Amy Hamilton. Chronic stable medical condition include diabetes, hypertension, hyperlipidemia, osteoarthritis. Patient smokes about a pack a day. 2 days ago patient started with pain in the right flank area then it came to the front. Progressively got worse. Denied any fever chills nausea vomiting. Patient pain brother became significant. Appetite was fair. No change in bowel pattern. April 13: Underwent laparoscopic cholecystectomy by Dr. Conway. MARCIANO drain in place. It was a very inflamed gallbladder. Pain at the operative site. Patient reclining in bed. IV and Levaquin Flagyl to continue. Clear liquid diet Active Medications Acetaminophen (Acetaminophen Tab 325 Mg Tab) 650 mg PO Q4HR PRN PRN Reason: Fever and/ or Pain Hydrocodone Bitart/Acetaminophen (Hydrocodone/Apap 5-325mg 1 Each Tab) 1 each PO Q4HR PRN PRN Reason: Pain Amlodipine Besylate (Amlodipine 10 Mg Tab) 10 mg PO DAILY [facility] Last Admin: 04/13/24 09:32 Dose: 10 mg Atorvastatin Calcium (Atorvastatin 20 Mg Tab) 20 mg PO HS [facility] Last Admin: 04/12/24 20:31 Dose: 20 mg Cholecalciferol (Cholecalciferol 125 Mcg (5000 Iu) Tablet) 125 mcg PO DAILY [facility] Last Admin: 04/13/24 09:32 Dose: 125 mcg Dextrose/Water (Dextrose 50% Syringe 50 Ml) 25 ml IVP PER PROTOCOL PRN; Protocol PRN Reason: Hypoglycemia Dextrose/Water (Dextrose 50% Syringe 50 Ml) 50 ml IVP PER PROTOCOL PRN; Protocol PRN Reason: Hypoglycemia Enoxaparin Sodium (Enoxaparin 40 Mg/0.4 Ml Syringe) 40 mg SQ DAILY [facility] Last Admin: 04/13/24 12:14 Dose: 40 mg Famotidine (Famotidine 20 Mg Tab) 20 mg PO BID [facility] Last Admin: 04/13/24 09:32 Dose: 20 mg Lisinopril/HCTZ (Lisinopril-Hctz 20-25 Mg 1 Each Tab) 1 each PO DAILY [facility] Last Admin: 04/13/24 09:32 Dose: 1 each Hydromorphone HCl (Hydromorphone 1 Mg/Ml 1 Ml Syringe) 1 mg IVP Q3HR PRN PRN Reason: Pain Last Admin: 04/13/24 14:55 Dose: 1 mg Hydromorphone HCl (Hydromorphone 0.5 Mg/0.5 Ml Syringe) 0.5 mg IVP Q5M PRN PRN Reason: Pain Stop: 04/13/24 23:00 Sodium Chloride (Saline 0.9%) 1,000 mls @ 75 mls/hr IV .[id number] [facility] Last Admin: 04/13/24 08:22 Dose: 75 mls/hr Metronidazole 500 mg/ IV (Solution) 100 mls @ 100 mls/hr IVPB Q8H [facility]; Protocol Last Admin: 04/13/24 14:15 Dose: 100 mls/hr Levofloxacin 500 mg/ IV (Solution) 100 mls @ 100 mls/hr IVPB DAILY [facility]; Protocol Last Admin: 04/13/24 09:32 Dose: 100 mls/hr Insulin Aspart (Insulin Aspart (Novolog) 100 Unit/Ml Vial) 0 unit SQ ACHS [facility]; Protocol Last Admin: 04/13/24 13:36 Dose: Not Given Ketorolac Tromethamine (Ketorolac 15 Mg/Ml 1 Ml Vial) 15 mg IVP Q6HR [facility] Stop: 04/15/24 06:01 Last Admin: 04/13/24 13:40 Dose: Not Given Metformin HCl (Metformin 500 Mg Tab) 500 mg PO BID-W/MEALS [facility] Last Admin: 04/13/24 06:26 Dose: 500 mg Naloxone HCl (Naloxone 0.4 Mg/Ml 1 Ml Vial) 0.2 mg IV Q2M PRN PRN Reason: Opioid Reversal Nicotine (Nicotine 21mg/24hr Patch) 1 patch TRANSDERM DAILY [facility] Last Admin: 04/13/24 09:33 Dose: Not Given Pantoprazole Sodium (Pantoprazole 40 Mg/10 Ml Vial) 40 mg IV DAILY [facility] Last Admin: 04/13/24 13:33 Dose: 40 mg Pregabalin (Pregabalin 75 Mg Cap) 75 mg PO HS [facility] Last Admin: 04/12/24 20:32 Dose: 75 mg Social history: Lives alone. Works for [employer]. Smokes about a pack a day. Physical examination: VITAL SIGNS: 99, 18, 110 x 69, 92% on 4 L GENERAL: Reclining bed, a bit tired EYES: Pupils equal. Conjunctiva natty l. HEENT: External appearance of nose and ears normal, oral cavity grossly normal. NECK: JVD not raised; masses not palpable. HEART: First and second heart sounds are normal; no edema. LUNGS: Respiratory rate normal; decreased breath sound. ABDOMEN: Soft, significant right upper quadrant tenderness, mild guarding no rigidity, liver spleen not palpable, no masses palpable. PSYCH: Alert and oriented x3; mood and affect anxious l. INVESTIGATIONS, reviewed in the clinical context: April 13: White count 9.2 hemoglobin 10.4 potassium 4.1 BUN 21 creatinine 1.28 White count 9.8 hemoglobin 12 platelets 302 sodium 140 potassium 4 BUN 24 creatinine 1.17 glucose 160 lipase 352 EKG tracing personally reviewed by me-normal sinus rhythm. Nonspecific ST-T wave changes in inferior lateral leads Ultrasound gallbladder: Liver enlarged in size heterogeneous and nodular in appearance. Gallbladder upper limits of normal in size. No stone seen. Possible edema around gallbladder fossa. Chest CTA: Unremarkable CT abdomen pelvis with contrast: Liver no focal lesion. No obvious cirrhotic appearance. Gallbladder: Some mild wall thickening with surrounding fat stranding. No biliary duct dilatation. Pancreas unremarkable Assessment plan: -Acute acalculous cholecystitis: Severe Laparoscopic cholecystectomy on April 13] MARCIANO drain IV Levaquin, IV Flagyl.. Clear liquids -Diabetes mellitus type 2, oral hypoglycemic Hold glyburide. Accu-Cheks with sliding scale insulin -Obesity BMI 35.3 Weight loss measures -Essential hypertension Amlodipine 10 mg Zestoretic 20/12.5 -Primary osteoarthritis Mobic as needed -GERD Pepcid -Hyperlipidemia Lipitor 20 mg nightly -Chronic nicotine dependence cigarette smoker Nicotine patch -Full code MARCIANO drain. Clear liquids. IV fluids. IV antibiotics. Thank you Dr. Conway Past Medical History Past Medical History: Diabetes Mellitus, Hyperlipidemia, Hypertension, Osteoarthritis (OA) Additional Past Surgical History / Comment(s): d&C Past Psychological History: No Psychological Hx Reported Smoking Status: Current every day smoker
[2024-04-13 17:12] LABS: Glucose,Whole Blood 191 mg/dL (70-110)
[2024-04-13 20:26] LABS: Glucose,Whole Blood 276 mg/dL (70-110)
[2024-04-13] MEDS: HYDROcodone/APAP 5-325MG 1 EACH TAB PO PRN (21:04)
[2024-04-14 04:38] LABS: Basophils % (A) 0 %; Eosinophils % (A) 0 %; HCT 29.8 % (34.0-46.0); Lymphocytes % (A) 10 %; MCH 32.5 pg (25.0-35.0); MCHC 33.5 g/dL (31.0-37.0); MCV 97.1 fL (80.0-100.0); Mean Platelet Volume 8.5; Monocytes # (A) 0.4 k/uL (0-1.0); Monocytes % (A) 3 %; Neutrophils # (A) 9.1 k/uL (1.3-7.7); Neutrophils % (A) 86 %; Platelet Count 255 k/uL (150-450); RBC 3.07 m/uL (3.80-5.40); RDW 14.6 % (11.5-15.5); WBC 10.6 k/uL (3.8-10.6)
[2024-04-14 05:07] LABS: ALT 267 U/L (4-34); AST 265 U/L (14-36); African American GFR (CKD) 53 (>60 ml/min/1.73 sqM); Albumin 3.4 g/dL (3.5-5.0); Albumin/Globulin Ratio 1.4; Alkaline Phosphatase 343 U/L (38-126); Anion Gap 6 mmol/L; Blood Urea Nitrogen 24 mg/dL (7-17); Carbon Dioxide 22 mmol/L (22-30); Chloride 106 mmol/L (98-107); Globulin 2.5 g/dL; Glucose 180 mg/dL (74-99); Non-African American GFR(CKD) 46 (>60 ml/min/1.73 sqM); Potassium 3.9 mmol/L (3.5-5.1); Sodium 134 mmol/L (137-145); Total Bilirubin 3.3 mg/dL (0.2-1.3); Total Protein 5.9 g/dL (6.3-8.2)
[2024-04-14 05:47] LABS: Glucose,Whole Blood 195 mg/dL (70-110)
--- NOTE | 2024-04-14 10:07 | P.PN ---
Subjective Progress Note Date: 04/14/24 Principal diagnosis: Acute cholecystitis Patient sitting comfortable in bed. Says her pain from surgery is present but the pain she was having preoperatively is somewhat improved. Tolerating liquid diet. She had nausea and vomiting last night. Her MARCIANO drain is serosanguineous. Her labs did show significant increase in bilirubin ALT AST and alkaline phosphatase. Objective - Vital Signs Vital signs: Vital Signs Temp 98.1 F 04/14/24 07:00 Pulse 77 04/14/24 07:00 Resp 16 04/14/24 07:00 BP 112/66 04/14/24 07:00 Pulse Ox 91 L 04/14/24 07:00 FiO2 Intake & Output 04/13/24 04/14/24 04/14/24 18:59 06:59 18:59 Intake Total 900 118 Output Total 25 20 65 Balance 875 -20 53 Weight 96.162 kg Intake: IV 900 Oral 118 Output: Drainage 20 20 65 Abdomen 20 20 65 Estimated Blood Loss 5 Other: Voiding Method Toilet Toilet # Voids 1 2 # Bowel Movements 0 - Exam Abdomen: Soft, nondistended, incisions clean and dry, MARCIANO serosanguineous - Labs CBC & Chem 7: 04/14/24 04:07 04/14/24 04:07 Labs: Abnormal Lab Results - Last 24 Hours (Table) 04/13/24 04/13/24 04/13/24 Range/Units 12:16 17:11 20:24 RBC (3.80-5.40) m/uL Hgb (11.4-16.0) gm/dL Hct (34.0-46.0) % Neutrophils # (1.3-7.7) k/uL Sodium (137-145) mmol/L BUN (7-17) mg/dL Creatinine (0.52-1.04) mg/dL Glucose (74-99) mg/dL POC Glucose (mg/dL) 186 H 191 H 276 H (70-110) mg/dL Total Bilirubin (0.2-1.3) mg/dL AST (14-36) U/L ALT (4-34) U/L Alkaline Phosphatase (38-126) U/L Total Protein (6.3-8.2) g/dL Albumin (3.5-5.0) g/dL 04/14/24 04/14/2404/14/24 Range/Units 04:07 04:07 05:44 RBC 3.07 L (3.80-5.40) m/uL Hgb 10.0 L (11.4-16.0) gm/dL Hct 29.8 L (34.0-46.0) % Neutrophils # 9.1 H (1.3-7.7) k/uL Sodium 134 L (137-145) mmol/L BUN 24 H (7-17) mg/dL Creatinine 1.33 H (0.52-1.04) mg/dL Glucose 180 H (74-99) mg/dL POC Glucose (mg/dL) 195 H (70-110) mg/dL Total Bilirubin 3.3 H (0.2-1.3) mg/dL AST 265 H (14-36) U/L ALT 267 H (4-34) U/L Alkaline Phosphatase 343 H (38-126) U/L Total Protein 5.9 L (6.3-8.2) g/dL Albumin 3.4 L (3.5-5.0) g/dL Assessment and Plan (1) Cholecystitis Narrative/Plan: Patient with increased liver enzyme elevation today. Likely on the basis of choledocholithiasis. Recheck labs tomorrow. Keep drain in place. Gradually advance diet as tolerated. Continue antibiotics. If enzyme elevation persist tomorrow will consult GI for possible ERCP. Current Visit: Yes Status: Acute Code(s): K81.9 - CHOLECYSTITIS, UNSPECIFIED SNOMED Code(s): 22388206
[2024-04-14 12:21] LABS: Glucose,Whole Blood 151 mg/dL (70-110)
[2024-04-14] MEDS: PROCHLORPERAZINE INJ 10 MG/2 ML VIAL IVP PRN (14:03)
[2024-04-14 17:13] LABS: Glucose,Whole Blood 154 mg/dL (70-110)
[2024-04-14 19:40] LABS: Glucose,Whole Blood 165 mg/dL (70-110)
--- NOTE | 2024-04-14 21:02 | P.PN ---
Progress Note - Text Progress Note Date: 04/14/24 - Chief Complaint Abdominal pain - History of Present Illness This is a pleasant 53-year-old patient, follows with Dr. Amy Hamilton. Chronic stable medical condition include diabetes, hypertension, hyperlipidemia, osteoarthritis. Patient smokes about a pack a day. 2 days ago patient started with pain in the right flank area then it came to the front. Progressively got worse. Denied any fever chills nausea vomiting. Patient pain brother became significant. Appetite was fair. No change in bowel pattern. April 13: Underwent laparoscopic cholecystectomy by Dr. Conway. MARCIANO drain in place. It was a very inflamed gallbladder. Pain at the operative site. Patient reclining in bed. IV and Levaquin Flagyl to continue. Clear liquid diet April 14: This morning patient put out about 30 cc in 6-hour shift through the MARCIANO drain. Some pain present. Nausea present. Compazine ordered. Increase activity. Getting IV fluids. Increase in LFTs. Discussed with Dr. Conway. Repeat LFTs tomorrow. MARCIANO drain has light serosanguineous discharge. Lightly pink in color. Not biliary Active Medications Acetaminophen (Acetaminophen Tab 325 Mg Tab) 650 mg PO Q4HR PRN PRN Reason: Fever and/ or Pain Hydrocodone Bitart/Acetaminophen (Hydrocodone/Apap 5-325mg 1 Each Tab) 1 each PO Q4HR PRN PRN Reason: Pain Last Admin: 04/14/24 13:16 Dose: 1 each Amlodipine Besylate (Amlodipine 10 Mg Tab) 10 mg PO DAILY [facility] Last Admin: 04/14/24 08:41 Dose: 10 mg Atorvastatin Calcium (Atorvastatin 20 Mg Tab) 20 mg PO HS [facility] Last Admin: 04/14/24 20:09 Dose: 20 mg Cholecalciferol (Cholecalciferol 125 Mcg (5000 Iu) Tablet) 125 mcg PO DAILY [facility] Last Admin: 04/14/24 08:41 Dose: 125 mcg Dextrose/Water (Dextrose 50% Syringe 50 Ml) 25 ml IVP PER PROTOCOL PRN; Protocol PRN Reason: Hypoglycemia Dextrose/Water (Dextrose 50% Syringe 50 Ml) 50 ml IVP PER PROTOCOL PRN; Protocol PRN Reason: Hypoglycemia Enoxaparin Sodium (Enoxaparin 40 Mg/0.4 Ml Syringe) 40 mg SQ DAILY [facility] Last Admin: 04/13/24 12:14 Dose: 40 mg Famotidine (Famotidine 20 Mg Tab) 20 mg PO BID [facility] Last Admin: 04/14/24 20:09 Dose: 20 mg Lisinopril/HCTZ (Lisinopril-Hctz 20-25 Mg 1 Each Tab) 1 each PO DAILY [facility] Last Admin: 04/14/24 08:41 Dose: 1 each Hydromorphone HCl (Hydromorphone 1 Mg/Ml 1 Ml Syringe) 1 mg IVP Q3HR PRN PRN Reason: Pain Last Admin: 04/13/24 14:55 Dose: 1 mg Sodium Chloride (Saline 0.9%) 1,000 mls @ 75 mls/hr IV .[id number] [facility] Last Admin: 04/14/24 20:08 Dose: Not Given Metronidazole 500 mg/ IV (Solution) 100 mls @ 100 mls/hr IVPB Q8H [facility]; Protocol Last Admin: 04/14/24 15:24 Dose: 100 mls/hr Levofloxacin 500 mg/ IV (Solution) 100 mls @ 100 mls/hr IVPB DAILY [facility]; Protocol Last Admin: 04/14/24 08:52 Dose: 100 mls/hr Insulin Aspart (Insulin Aspart (Novolog) 100 Unit/Ml Vial) 0 unit SQ ACHS [facility]; Protocol Last Admin: 04/14/24 20:09 Dose: 2 unit Ketorolac Tromethamine (Ketorolac 15 Mg/Ml 1 Ml Vial) 15 mg IVP Q6HR [facility] Stop: 04/15/24 06:01 Last Admin: 04/14/24 17:59 Dose: 15 mg Metformin HCl (Metformin 500 Mg Tab) 500 mg PO BID-W/MEALS [facility] Last Admin: 04/14/24 17:59 Dose: 500 mg Naloxone HCl (Naloxone 0.4 Mg/Ml 1 Ml Vial) 0.2 mg IV Q2M PRN PRN Reason: Opioid Reversal Nicotine (Nicotine 21mg/24hr Patch) 1 patch TRANSDERM DAILY [facility] Last Admin: 04/14/24 08:41 Dose: Not Given Pantoprazole Sodium (Pantoprazole 40 Mg/10 Ml Vial) 40 mg IV DAILY [facility] Last Admin: 04/14/24 08:41 Dose: 40 mg Pregabalin (Pregabalin 75 Mg Cap) 75 mg PO HS [facility] Last Admin: 04/14/24 20:09 Dose: 75 mg Prochlorperazine Edisylate (Prochlorperazine Inj 10 Mg/2 Ml Vial) 5 mg IVP Q4HR PRN PRN Reason: Nausea And Vomiting Last Admin: 04/14/24 14:03 Dose: 5 mg Social history: Lives alone. Works for [employer]. Smokes about a pack a day. Physical examination: VITAL SIGNS: 98, 87, 17, 115 x 66, 91% room air GENERAL: Reclining bed, bit uncomfortable EYES: Pupils equal. Conjunctiva natty l. HEENT: External appearance of nose and ears normal, oral cavity grossly normal. NECK: JVD not raised; masses not palpable. HEART: First and second heart sounds are normal; no edema. LUNGS: Respiratory rate increased; decreased breath sound. ABDOMEN: Soft, significant right upper quadrant tenderness, mild guarding no rigidity, liver spleen not palpable, no masses palpable. MARCIANO drain with-pink serosanguineous output PSYCH: Alert and oriented x3; mood and affect anxious l. INVESTIGATIONS, reviewed in the clinical context: April 14: White count 10.6 hemoglobin 10 platelets 255 potassium 3.9 BUN 24 creatinine 1.33 total bilirubin 3.3 AST 265 ALT 267 April 13: White count 9.2 hemoglobin 10.4 potassium 4.1 BUN 21 creatinine 1.28 White count 9.8 hemoglobin 12 platelets 302 sodium 140 potassium 4 BUN 24 creatinine 1.17 glucose 160 lipase 352 EKG tracing personally reviewed by me-normal sinus rhythm. Nonspecific ST-T wave changes in inferior lateral leads Ultrasound gallbladder: Liver enlarged in size heterogeneous and nodular in appearance. Gallbladder upper limits of normal in size. No stone seen. Possible edema around gallbladder fossa. Chest CTA: Unremarkable CT abdomen pelvis with contrast: Liver no focal lesion. No obvious cirrhotic appearance. Gallbladder: Some mild wall thickening with surrounding fat stranding. No biliary duct dilatation. Pancreas unremarkable Assessment plan: -Acute cholecystitis: Severe Laparoscopic cholecystectomy on April 13] MARCIANO drain IV Levaquin, IV Flagyl.. Clear liquids -Postop acute transaminitis with hyperbilirubinemia., No biliary leak in the MARCIANO drain: New diagnosis Repeat labs. Hold Lipitor for now. -Diabetes mellitus type 2, oral hypoglycemic Hold glyburide. Accu-Cheks with sliding scale insulin -Obesity BMI 35.3 Weight loss measures -Essential hypertension Amlodipine 10 mg Zestoretic 12.5 -Primary osteoarthritis Mobic as needed -GERD Pepcid -Hyperlipidemia Lipitor-hold for now -Chronic nicotine dependence cigarette smoker Nicotine patch -Full code MARCIANO drain. Clear liquids. Hold Lipitor. IV fluids. Activity as tolerated. Thank you Dr. Conway Past Medical History Past Medical History: Diabetes Mellitus, Hyperlipidemia, Hypertension, Osteoarthritis (OA) Additional Past Surgical History / Comment(s): d&C Past Psychological History: No Psychological Hx Reported Smoking Status: Current every day smoker
[2024-04-15 04:45] LABS: Basophils # (A) 0.1 k/uL (0-0.2); Basophils % (A) 1 %; Eosinophils # (A) 0.1 k/uL (0-0.7); Eosinophils % (A) 1 %; HCT 28.3 % (34.0-46.0); HGB 9.4 gm/dL (11.4-16.0); Lymphocytes # (A) 1.2 k/uL (1.0-4.8); Lymphocytes % (A) 13 %; MCH 32.1 pg (25.0-35.0); MCHC 33.3 g/dL (31.0-37.0); MCV 96.4 fL (80.0-100.0); Mean Platelet Volume 8.5; Monocytes # (A) 0.3 k/uL (0-1.0); Monocytes % (A) 3 %; Neutrophils # (A) 7.4 k/uL (1.3-7.7); Neutrophils % (A) 81 %; Platelet Count 259 k/uL (150-450); RBC 2.94 m/uL (3.80-5.40); RDW 14.3 % (11.5-15.5); WBC 9.1 k/uL (3.8-10.6)
[2024-04-15 05:24] LABS: Glucose,Whole Blood 148 mg/dL (70-110)
[2024-04-15 08:56] LABS: ALT 196 U/L (8-44); AST 108 U/L (13-35); Albumin 3.4 g/dL (3.8-4.9); Albumin/Globulin Ratio 1.48 Ratio (1.60-3.17); Alkaline Phosphatase 360 U/L (41-126); Blood Urea Nitrogen 20.3 mg/dL (9.0-27.0); Calcium 8.6 mg/dL (8.7-10.3); Chloride 103 mmol/L (96-109); Globulin 2.3 g/dL (1.6-3.3); Glucose 136 mg/dL (70-110); Sodium 137 mmol/L (135-145); Total Bilirubin 2.3 mg/dL (0.3-1.2); Total Protein 5.7 g/dL (6.2-8.2)
--- NOTE | 2024-04-15 11:18 | P.PN ---
Subjective Progress Note Date: 04/15/24 CHIEF COMPLAINT: Cholecystitis HISTORY OF PRESENT ILLNESS: Patient is postop day #2 status post laparoscopic cholecystectomy. Patient does report incisional pain. She did have nausea and vomiting yesterday. It is better today. Denies any flatus. Denies any bowel movements. Afebrile. MARCIANO drain 70 mL cloudy, serosanguineous fluid. Fluid is more serous in color. WBC is 9.1. Total bilirubin is down from 3.3-2.3 AST and ALT trending downwards. Alk phos up slightly at 360 from 343 PHYSICAL EXAM: VITAL SIGNS: Reviewed. GENERAL: Well-developed in no acute distress. ABDOMEN: Soft. Nondistended. Incision sites clean dry and intact. MARCIANO drain serosanguineous, cloudy fluid NEUROLOGIC: Alert and oriented. Cranial nerves II through XII grossly intact. ASSESSMENT: 1. Acute acalculous cholecystitis 2. Elevated total bilirubin and LFTs trending downwards. Patient may have passed sludge or gallstone PLAN: -Continue to monitor -Repeat CMP in a.m. If total bilirubin and LFTs continue to decrease then anticipate discharge tomorrow. If LFTs are staying the same or increase then will consult GI service -Advance diet to low-fat -Encourage patient to ambulate -Continue pain management -Continue antibiotics -GI prophylaxis Protonix and DVT prophylaxis Lovenox Physician Cellophane Wrapping Examiner note has been reviewed by physician. Signing provider agrees with the documented findings, assessment, and plan of care. I have personally seen and examined the patient, reviewed the SUPPORT MANAGER /PAs history, exam and MDM and agree with the assessment and plan as written. Based on total visit time, I have performed more than 50% of the visit. As above: Patient doing well today. Minimal pain she says. Mostly only when moving. She states the pain she came in with is mostly gone. MARCIANO drain is serous. Yesterday's liver enzymes were significantly elevated. They are somewhat improved today. Options discussed with patient. Given the improvement in the lab values we will hold off on GI consult. Will repeat CMP level tomorrow. If they continue to improve plan for probable discharge. If they are the same or higher we will consult GI for possible ERCP. Patient is agreeable. Objective - Vital Signs Vital signs: Vital Signs Temp 97.8 F 04/15/24 07:00 Pulse 86 04/15/24 07:00 Resp 16 04/15/24 07:00 BP 117/70 04/15/24 07:00 Pulse Ox 95 04/15/24 07:00 FiO2 Intake & Output 04/14/24 04/15/24 04/15/24 18:59 06:59 18:59 Intake Total 118 118 Output Total 95 110 Balance 23 -110 118 Intake: Oral 118 118 Output: Drainage 95 110 Abdomen 95 110 Other: Voiding Method Toilet Toilet # Voids 3 2 # Bowel Movements 0 - Labs CBC & Chem 7: 04/15/24 04:18 04/15/24 04:18 Labs: Abnormal Lab Results - Last 24 Hours (Table) 04/14/24 04/14/24 04/14/24 Range/Units 12:20 17:12 19:38 RBC (3.80-5.40) m/uL Hgb (11.4-16.0) gm/dL Hct (34.0-46.0) % Est GFR (CKD-EPI) (>=60) Glucose (70-110) mg/dL POC Glucose (mg/dL) 151 H 154 H 165 H (70-110) mg/dL Calcium (8.7-10.3) mg/dL Total Bilirubin (0.3-1.2) mg/dL AST (13-35) U/L ALT (8-44) U/L Alkaline Phosphatase (41-126) U/L Total Protein (6.2-8.2) g/dL Albumin (3.8-4.9) g/dL Albumin/Globulin Ratio (1.60-3.17) Ratio 04/15/24 04/15/24 04/15/24 Range/Units 04:18 04:18 05:21 RBC 2.94 L (3.80-5.40) m/uL Hgb 9.4 L (11.4-16.0) gm/dL Hct 28.3 L (34.0-46.0) % Est GFR (CKD-EPI) 45 L (>=60) Glucose 136 H (70-110) mg/dL POC Glucose (mg/dL) 148 H (70-110) mg/dL Calcium 8.6 L (8.7-10.3) mg/dL Total Bilirubin 2.3 H (0.3-1.2) mg/dL AST 108 H (13-35) U/L ALT 196 H (8-44) U/L Alkaline Phosphatase 360 H (41-126) U/L Total Protein 5.7 L (6.2-8.2) g/dL Albumin 3.4 L (3.8-4.9) g/dL Albumin/Globulin Ratio 1.48 L (1.60-3.17) Ratio
[2024-04-15 12:02] LABS: Glucose,Whole Blood 144 mg/dL (70-110)
--- NOTE | 2024-04-15 16:37 | P.PN ---
Progress Note - Text Progress Note Date: 04/15/24 - Chief Complaint Abdominal pain - History of Present Illness This is a pleasant 53-year-old patient, follows with Dr. Amy Hamilton. Chronic stable medical condition include diabetes, hypertension, hyperlipidemia, osteoarthritis. Patient smokes about a pack a day. 2 days ago patient started with pain in the right flank area then it came to the front. Progressively got worse. Denied any fever chills nausea vomiting. Patient pain brother became significant. Appetite was fair. No change in bowel pattern. April 13: Underwent laparoscopic cholecystectomy by Dr. Conway. MARCIANO drain in place. It was a very inflamed gallbladder. Pain at the operative site. Patient reclining in bed. IV and Levaquin Flagyl to continue. Clear liquid diet April 14: This morning patient put out about 30 cc in 6-hour shift through the MARCIANO drain. Some pain present. Nausea present. Compazine ordered. Increase activity. Getting IV fluids. Increase in LFTs. Discussed with Dr. Conway. Repeat LFTs tomorrow. MARCIANO drain has light serosanguineous discharge. Lightly pink in color. Not biliary April 15: Saw the patient this morning. Still having light pink output to MARCIANO drain. Some improvement in LFTs. Abdominal pain still present. Per surgery patient advance to low-fat regular diet by lunchtime. Patient did ambulate. Asked to increase activity. No fever no chills. Active Medications Acetaminophen (Acetaminophen Tab 325 Mg Tab) 650 mg PO Q4HR PRN PRN Reason: Fever and/ or Pain Hydrocodone Bitart/Acetaminophen (Hydrocodone/Apap 5-325mg 1 Each Tab) 1 each PO Q4HR PRN PRN Reason: Pain Last Admin: 04/15/24 14:55 Dose: 1 each Amlodipine Besylate (Amlodipine 10 Mg Tab) 10 mg PO DAILY MARY Last Admin: 04/15/24 08:01 Dose: 10 mg Cholecalciferol (Cholecalciferol 125 Mcg (5000 Iu) Tablet) 125 mcg PO DAILY MARY Last Admin: 04/15/24 08:01 Dose: 125 mcg Dextrose/Water (Dextrose 50% Syringe 50 Ml) 25 ml IVP PER PROTOCOL PRN; Protocol PRN Reason: Hypoglycemia Dextrose/Water (Dextrose 50% Syringe 50 Ml) 50 ml IVP PER PROTOCOL PRN; Protocol PRN Reason: Hypoglycemia Enoxaparin Sodium (Enoxaparin 40 Mg/0.4 Ml Syringe) 40 mg SQ DAILY [facility] Last Admin: 04/15/24 08:06 Dose: Not Given Famotidine (Famotidine 20 Mg Tab) 20 mg PO BID [facility] Last Admin: 04/15/24 08:01 Dose: 20 mg Lisinopril/HCTZ (Lisinopril-Hctz 20-25 Mg 1 Each Tab) 1 each PO DAILY [facility] Last Admin: 04/15/24 08:28 Dose: 1 each Hydromorphone HCl (Hydromorphone 1 Mg/Ml 1 Ml Syringe) 1 mg IVP Q3HR PRN PRN Reason: Pain Last Admin: 04/13/24 14:55 Dose: 1 mg Sodium Chloride (Saline 0.9%) 1,000 mls @ 75 mls/hr IV .[id number] [facility] Last Admin: 04/15/24 09:42 Dose: Not Given Metronidazole 500 mg/ IV (Solution) 100 mls @ 100 mls/hr IVPB Q8H [facility]; Protocol Last Admin: 04/15/24 14:16 Dose: 100 mls/hr Levofloxacin 500 mg/ IV (Solution) 100 mls @ 100 mls/hr IVPB DAILY [facility]; Protocol Last Admin: 04/15/24 08:01 Dose: 100 mls/hr Insulin Aspart (Insulin Aspart (Novolog) 100 Unit/Ml Vial) 0 unit SQ ACHS [facility]; Protocol Last Admin: 04/15/24 12:14 Dose: Not Given Metformin HCl (Metformin 500 Mg Tab) 500 mg PO BID-W/MEALS [facility] Last Admin: 04/15/24 06:22 Dose: 500 mg Naloxone HCl (Naloxone 0.4 Mg/Ml 1 Ml Vial) 0.2 mg IV Q2M PRN PRN Reason: Opioid Reversal Nicotine (Nicotine 21mg/24hr Patch) 1 patch TRANSDERM DAILY [facility] Last Admin: 04/15/24 08:01 Dose: Not Given Pantoprazole Sodium (Pantoprazole 40 Mg/10 Ml Vial) 40 mg IV DAILY [facility] Last Admin: 04/15/24 08:39 Dose: 40 mg Pregabalin (Pregabalin 75 Mg Cap) 75 mg PO HS [facility] Last Admin: 04/14/24 20:09 Dose: 75 mg Prochlorperazine Edisylate (Prochlorperazine Inj 10 Mg/2 Ml Vial) 5 mg IVP Q4HR PRN PRN Reason: Nausea And Vomiting Last Admin: 04/14/24 14:03 Dose: 5 mg Social history: Lives alone. Works for [employer]. Smokes about a pack a day. Physical examination: VITAL SIGNS: 98, 97, 16, 104 x 65, 93% room air GENERAL: Reclining bed, appearing better EYES: Pupils equal. Conjunctiva natty l. HEENT: External appearance of nose and ears normal, oral cavity grossly normal. NECK: JVD not raised; masses not palpable. HEART: First and second heart sounds are normal; no edema. LUNGS: Respiratory rate increased; decreased breath sound. ABDOMEN: Soft, significant right upper quadrant tenderness, mild guarding no rigidity, liver spleen not palpable, no masses palpable. MARCIANO drain with-light pink output t PSYCH: Alert and oriented x3; mood and affect anxious l. INVESTIGATIONS, reviewed in the clinical context: April 15: White count 9.1 hemoglobin 9.4 platelets 259 sodium 137 potassium 4 creatinine 1.4 total bilirubin 2.3 AST 108 ALT 196 alkaline phosphatase 360 April 14: White count 10.6 hemoglobin 10 platelets 255 potassium 3.9 BUN 24 creatinine 1.33 total bilirubin 3.3 AST 265 ALT 267 April 13: White count 9.2 hemoglobin 10.4 potassium 4.1 BUN 21 creatinine 1.28 White count 9.8 hemoglobin 12 platelets 302 sodium 140 potassium 4 BUN 24 creatinine 1.17 glucose 160 lipase 352 EKG tracing personally reviewed by me-normal sinus rhythm. Nonspecific ST-T wave changes in inferior lateral leads Ultrasound gallbladder: Liver enlarged in size heterogeneous and nodular in appearance. Gallbladder upper limits of normal in size. No stone seen. Possible edema around gallbladder fossa. Chest CTA: Unremarkable CT abdomen pelvis with contrast: Liver no focal lesion. No obvious cirrhotic appearance. Gallbladder: Some mild wall thickening with surrounding fat stranding. No biliary duct dilatation. Pancreas unremarkable Assessment plan: -Acute cholecystitis: Severe Laparoscopic cholecystectomy on April 13] MARCIANO drain IV Levaquin, IV Flagyl.. Advance to regular diet by lunch -Postop acute transaminitis with hyperbilirubinemia., No biliary leak in the MARCIANO drain: Some improvement in transaminitis Repeat labs. Hold Lipitor for now. -Diabetes mellitus type 2, oral hypoglycemic Resume glyburide. Accu-Cheks with sliding scale insulin -Obesity BMI 35.3 Weight loss measures -Essential hypertension Amlodipine 10 mg Zestoretic /12.5 -Primary osteoarthritis Mobic as needed -GERD Pepcid -Hyperlipidemia Lipitor-hold for now -Chronic nicotine dependence cigarette smoker Nicotine patch -Full code MARCIANO drain. Advance to low-fat regular diet by this afternoon by surgery. Increase activity. Follow labs. Discussed. Past Medical History Past Medical History: Diabetes Mellitus, Hyperlipidemia, Hypertension, Osteoarthritis (OA) Additional Past Surgical History / Comment(s): d&C Past Psychological History: No Psychological Hx Reported Smoking Status: Current every day smoker
[2024-04-15 17:14] LABS: Glucose,Whole Blood 201 mg/dL (70-110)
[2024-04-15] MEDS: glipiZIDE 10 MG TAB PO SCH (17:47)
[2024-04-15 19:51] LABS: Glucose,Whole Blood 153 mg/dL (70-110)
[2024-04-16 05:04] LABS: Basophils % (A) 0 %; Eosinophils # (A) 0.2 k/uL (0-0.7); Eosinophils % (A) 3 %; HCT 28.7 % (34.0-46.0); HGB 9.5 gm/dL (11.4-16.0); Hypochromasia Slight; Lymphocytes # (A) 1.2 k/uL (1.0-4.8); Lymphocytes % (A) 17 %; MCH 32.4 pg (25.0-35.0); Mean Platelet Volume 7.8; Monocytes # (A) 0.3 k/uL (0-1.0); Monocytes % (A) 4 %; Neutrophils # (A) 4.9 k/uL (1.3-7.7); Neutrophils % (A) 73 %; Platelet Count 277 k/uL (150-450); RBC 2.93 m/uL (3.80-5.40); RDW 14.2 % (11.5-15.5); WBC 6.8 k/uL (3.8-10.6)
[2024-04-16 05:25] LABS: Anion Gap 4 mmol/L; Blood Urea Nitrogen 21 mg/dL (7-17); Carbon Dioxide 23 mmol/L (22-30); Chloride 111 mmol/L (98-107); Glucose 61 mg/dL (74-99); Potassium 3.8 mmol/L (3.5-5.1); Sodium 138 mmol/L (137-145)
[2024-04-16 05:26] LABS: ALT 142 U/L (4-34); AST 64 U/L (14-36); African American GFR (CKD) 49 (>60 ml/min/1.73 sqM); Albumin 3.1 g/dL (3.5-5.0); Albumin/Globulin Ratio 1.2; Alkaline Phosphatase 357 U/L (38-126); Calcium 9.2 mg/dL (8.4-10.2); Globulin 2.6 g/dL; Non-African American GFR(CKD) 43 (>60 ml/min/1.73 sqM); Total Bilirubin 1.6 mg/dL (0.2-1.3); Total Protein 5.7 g/dL (6.3-8.2)
[2024-04-16 05:48] LABS: Glucose,Whole Blood 77 mg/dL (70-110)
[2024-04-16 06:26] LABS: Glucose,Whole Blood 102 mg/dL (70-110)
[2024-04-16 07:48] VITALS: BP 132/81; PULSE 83; RESP 16; TEMP 98.1
[2024-04-16] MEDS: FAMOTIDINE 20 MG TAB PO SCH (08:45)
[2024-04-16 12:11] LABS: Glucose,Whole Blood 80 mg/dL (70-110)
--- NOTE | 2024-04-16 12:30 | P.DS ---
Providers Date of admission: 04/12/24 13:24 Expected date of discharge: 04/16/24 Attending physician: Nirav Conway Consults: 04/12/24 14:21 Consult Physician Routine Consulting Provider: Apollo Bryan Consult Reason/Comments: medical management Do you want consulting provider notified?: Yes Primary care physician: Amy Hamilton Hospital Course: Discharge diagnosis 1. Acute acalculous cholecystitis 2. Elevated total bilirubin and LFTs trending downwards. Patient may have passed sludge or gallstone Hospital course This is a 53-year-old female who presented to the hospital with right upper quadrant abdominal pain. Abdominal ultrasound reported heterogenous nodular appearance of liver correlate for hepatocellular disease such as cirrhosis, hepatitis. Possible edema around the gallbladder fossa. No gallstones. No acute process. And CT scan abdomen and pelvis had reported minimal gallbladder wall thickening and some surrounding fat stranding identified which raises concerns for acute cholecystitis. Patient mated to the hospital with acute acalculous cholecystitis. She is status post laparoscopic appendectomy. Her pain is controlled. She is tolerating diet. She is afebrile. She is stable for discharge. Her LFTs and total bilirubin level were elevated postoperatively and are now trending downwards. Patient given lab prescription for follow-up blood work outpatient prior to her follow-up office visit. Patient is stable for discharge. Please refer to chart for any further details. Physician Emergency Medical Tech note has been reviewed by physician. Signing provider agrees with the documented findings, assessment, and plan of care. Patient Condition at Discharge: Stable Plan - Discharge Summary New Discharge Prescriptions: New oxyCODONE HCL [OxyIR] 5 mg PO Q6H PRN 3 Days #6 tab PRN Reason: Breakthrough Pain Nicotine 21Mg/24Hr Patch [Habitrol] 1 patch TRANSDERM DAILY #30 patch Acetaminophen Tab [Tylenol] 650 mg PO Q4HR PRN tab PRN Reason: Fever And/ Or Pain Continue glipiZIDE [Glucotrol] 10 mg PO AC-BID Pregabalin [Lyrica] 75 mg PO HS Meloxicam [Mobic] 15 mg PO DAILY amLODIPine [Norvasc] 10 mg PO DAILY metFORMIN HCL 500 mg PO BID Atorvastatin [Lipitor] 20 mg PO HS Famotidine [Pepcid] 20 mg PO BID Cholecalciferol [Vitamin D3 (125 Mcg = 5000 Iu)] 125 mcg PO DAILY Lisinopril-Hctz 20-25 mg [Zestoretic 20-25] 1 tab PO DAILY Discharge Medication List Atorvastatin [Lipitor] 20 mg PO HS 04/12/24 [History] Cholecalciferol [Vitamin D3 (125 Mcg = 5000 Iu)] 125 mcg PO DAILY 04/12/24 [History] Famotidine [Pepcid] 20 mg PO BID 04/12/24 [History] Lisinopril-Hctz 20-25 mg [Zestoretic 20-25] 1 tab PO DAILY 04/12/24 [History] Meloxicam [Mobic] 15 mg PO DAILY 04/12/24 [History] Pregabalin [Lyrica] 75 mg PO HS 04/12/24 [History] amLODIPine [Norvasc] 10 mg PO DAILY 04/12/24 [History] glipiZIDE [Glucotrol] 10 mg PO AC-BID 04/12/24 [History] metFORMIN HCL 500 mg PO BID 04/12/24 [History] oxyCODONE HCL [OxyIR] 5 mg PO Q6H PRN 3 Days #6 tab 04/13/24 [Rx] Acetaminophen Tab [Tylenol] 650 mg PO Q4HR PRN tab 04/16/24 [Rx] Nicotine 21Mg/24Hr Patch [Habitrol] 1 patch TRANSDERM DAILY #30 patch 04/16/24 [Rx] Follow up Appointment(s)/Referral(s): Nirav Conway MD [Medical Doctor] - 05/01/24 3:40 pm Amy Hamilton DO [Primary Care Provider] - 1 Week None,Stated [REFERRING] - 1-2 days Ambulatory/Diagnostic Orders: Comprehensive Metabolic Panel [LAB.AMB] Time Frame: 1 Week, Location: None Selected Patient Instructions/Handouts: Low Fat Diet (ED), Laparoscopic Cholecystectomy (GEN) Activity/Diet/Wound Care/Special Instructions: No driving while taking OxyIR No lifting over 10 pounds You may shower. No soaking or tub baths for 2 weeks Very light activity until you are reevaluated at your follow up appointment with your surgeon Check blood work before office visit with Dr. Conway Discharge Disposition: HOME SELF-CARE
--- NOTE | 2024-04-16 22:39 | P.PN ---
Progress Note - Text Progress Note Date: 04/16/24 Chief Complaint Abdominal pain - History of Present Illness This is a pleasant 53-year-old patient, follows with Dr. Amy Hamilton. Chronic stable medical condition include diabetes, hypertension, hyperlipidemia, osteoarthritis. Patient smokes about a pack a day. 2 days ago patient started with pain in the right flank area then it came to the front. Progressively got worse. Denied any fever chills nausea vomiting. Patient pain brother became significant. Appetite was fair. No change in bowel pattern. April 13: Underwent laparoscopic cholecystectomy by Dr. Conway. MARCIANO drain in place. It was a very inflamed gallbladder. Pain at the operative site. Patient reclining in bed. IV and Levaquin Flagyl to continue. Clear liquid diet April 14: This morning patient put out about 30 cc in 6-hour shift through the MARCIANO drain. Some pain present. Nausea present. Compazine ordered. Increase activity. Getting IV fluids. Increase in LFTs. Discussed with Dr. Conway. Repeat LFTs tomorrow. MARCIANO drain has light serosanguineous discharge. Lightly pink in color. Not biliary April 15: Saw the patient this morning. Still having light pink output to MARCIANO drain. Some improvement in LFTs. Abdominal pain still present. Per surgery patient advance to low-fat regular diet by lunchtime. Patient did ambulate. Asked to increase activity. No fever no chills. April 16: Abdominal pain much better tolerating diet. Has ambulated. Clear drainage from the MARCIANO drain.Patient being discharged by surgery. Antibiotics per them. Discussed with patient. Social history: Lives alone. Works for [employer]. Smokes about a pack a day. Physical examination: VITAL SIGNS: 98.1, 83, 16, 1 3281, 96% room air GENERAL: Reclining bed, appears much better EYES: Pupils equal. Conjunctiva natty l. HEENT: External appearance of nose and ears normal, oral cavity grossly normal. NECK: JVD not raised; masses not palpable. HEART: First and second heart sounds are normal; no edema. LUNGS: Respiratory rate increased; decreased breath sound. ABDOMEN: Soft, significant right upper quadrant tenderness, mild guarding no rigidity, liver spleen not palpable, no masses palpable. MARCIANO drain with-light pink output t PSYCH: Alert and oriented x3; mood and affect anxious l. INVESTIGATIONS, reviewed in the clinical context: April 16: White count 6.8 hemoglobin 9.5 platelets 237 potassium 3.8 BUN 21 creatinine 1.41 total bilirubin 1.6 AST 64 ALT 142 April 15: White count 9.1 hemoglobin 9.4 platelets 259 sodium 137 potassium 4 creatinine 1.4 total bilirubin 2.3 AST 108 ALT 196 alkaline phosphatase 360 April 14: White count 10.6 hemoglobin 10 platelets 255 potassium 3.9 BUN 24 creatinine 1.33 total bilirubin 3.3 AST 265 ALT 267 April 13: White count 9.2 hemoglobin 10.4 potassium 4.1 BUN 21 creatinine 1.28 White count 9.8 hemoglobin 12 platelets 302 sodium 140 potassium 4 BUN 24 creatinine 1.17 glucose 160 lipase 352 EKG tracing personally reviewed by me-normal sinus rhythm. Nonspecific ST-T wav e changes in inferior lateral leads Ultrasound gallbladder: Liver enlarged in size heterogeneous and nodular in appearance. Gallbladder upper limits of normal in size. No stone seen. Possible edema around gallbladder fossa. Chest CTA: Unremarkable CT abdomen pelvis with contrast: Liver no focal lesion. No obvious cirrhotic appearance. Gallbladder: Some mild wall thickening with surrounding fat stranding. No biliary duct dilatation. Pancreas unremarkable Assessment plan: -Acute cholecystitis: Severe Laparoscopic cholecystectomy on April 13] MARCIANO drain IV Levaquin, IV Flagyl.. Tolerating diet. Discharge of antibiotics per surgery if needed -Postop acute transaminitis with hyperbilirubinemia., No biliary leak in the MARCIANO drain: Likely from passing of stone or sludge. Improving -Diabetes mellitus type 2, oral hypoglycemic glyburide. Accu-Cheks with sliding scale insulin -Obesity BMI 35.3 Weight loss measures -Essential hypertension Amlodipine 10 mg Zestoretic 20/12.5 -Primary osteoarthritis Mobic as needed -GERD Pepcid -Hyperlipidemia Lipitor-hold for now -Chronic nicotine dependence cigarette smoker Nicotine patch -Full code Discussed with patient. Past Medical History Past Medical History: Diabetes Mellitus, Hyperlipidemia, Hypertension, Osteoarthritis (OA) Additional Past Surgical History / Comment(s): d&C Past Psychological History: No Psychological Hx Reported Smoking Status: Current every day smoker
== END 2024-04-16 13:07 | disposition home or self-care (01) ==
LOC: EC 08:14 → 6NMEDSUR 13:24
PROVIDERS: ADMIT Surgery; ATTEND Surgery
DX: K80.42 Calculus of bile duct with acute cholecystitis without obstruction (principal); I10 Essential (primary) hypertension; M19.90 Unspecified osteoarthritis, unspecified site; E78.5 Hyperlipidemia, unspecified; E11.9 Type 2 diabetes mellitus without complications; F17.210 Nicotine dependence, cigarettes, uncomplicated; E86.0 Dehydration; E66.9 Obesity, unspecified; Z68.35 Body mass index [BMI] 35.0-35.9, adult; K21.9 Gastro-esophageal reflux disease without esophagitis; Z88.1 Allergy status to other antibiotic agents; Z79.899 Other long term (current) drug therapy; Z79.1 Long term (current) use of non-steroidal anti-inflammatories (NSAID); Z79.84 Long term (current) use of oral hypoglycemic drugs
CPT/HCPCS: 96361 ×2; 96372; 96360; 99285; 36415; 93005; 88304; 80053 ×5; 82150 ×2; 83605; 83690 ×2; 85025 ×5; 76705; 71275; 74177; 47562; G0378 ×5; J2250; J0330; J0780; J2710; J2405; J1956 ×5; J2003; J1650 ×2; J3010; J1171 ×2; J1885 ×3; J2704; Q9967; J1836 ×5; J0665; J1596; J2470 ×4

== ENCOUNTER → 2024-04-25 | Outpatient (CLI) | payer OTHER ==
[2024-04-25 15:40] LABS: ALT 21 U/L (8-44); AST 19 U/L (13-35); Albumin 4.1 g/dL (3.8-4.9); Albumin/Globulin Ratio 1.41 Ratio (1.60-3.17); Alkaline Phosphatase 246 U/L (41-126); BUN/Creat Ratio 15.17 Ratio (12.00-20.00); Blood Urea Nitrogen 18.2 mg/dL (9.0-27.0); Carbon Dioxide 25.9 mmol/L (21.6-31.8); Chloride 102 mmol/L (96-109); Globulin 2.9 g/dL (1.6-3.3); Glucose 97 mg/dL (70-110); Potassium 4.8 mmol/L (3.5-5.5); Sodium 140 mmol/L (135-145); Total Bilirubin 0.9 mg/dL (0.3-1.2)
== END | disposition home or self-care (01) ==
LOC: LABWHC1 11:04
PROVIDERS: ATTEND Physician Assistant
DX: Z00.00 Encounter for general adult medical examination without abnormal findings (principal)
CPT/HCPCS: 36415; 80053